=== PATIENT | male | born 1975 | race African-American/Black ===

== ENCOUNTER 2021-02-08 17:52 | Emergency (ER) | payer OTHER ==
[~2021-02-08] VITALS: Ht 182.9 cm; Wt 111.1 kg
[2021-02-08 18:56] LABS: ABSOLUTE NEUTROPHILS 2.4 thou/uL (1.4-8.2); BASOPHILS 0.7 % (0.0-2.0); EOSINOPHILS 4.9 % (0.0-3.0); HEMATOCRIT 43.8 % (42.0-52.0); HEMOGLOBIN 15.3 gm/dL (14.0-18.0); LYMPHOCYTES 23.9 % (24.0-44.0); MCH 31.9 pg (26.0-34.0); MCHC 34.9 g/dL (28.0-37.0); MCV 91.5 fL (80.0-100.0); MONOCYTES 13.3 % (1.0-8.0); PLATELET COUNT 218 thou/uL (150-400); POLYS 57.2 % (36.0-66.0); RBC 4.78 mil/uL (4.50-6.00); RDW 14.8 % (10.5-14.5); WBC 4.1 thou/uL (4.0-11.0)
[2021-02-08 18:57] LABS: URINE BILIRUBIN NEGATIVE (Negative); URINE BLOOD NEGATIVE (Negative); URINE CLARITY CLEAR; URINE COLOR YELLOW; URINE GLUCOSE-RANDOM* NEGATIVE (Negative); URINE KETONES NEGATIVE (Negative); URINE LEUKOCYTES-REFLEX NEGATIVE (Negative); URINE NITRITE-REFLEX NEGATIVE (Negative); URINE PROTEIN (DIPSTICK) NEGATIVE (Negative); URINE UROBILINOGEN 0.2 E.U./dl (0.2-1.0)
[2021-02-08 19:00] LABS: CREATININE 1.3 mg/dL (0.7-1.3); POTASSIUM 4.1 mmol/L (3.5-5.1)
[2021-02-08 19:06] LABS: ALBUMIN 3.2 g/dL (3.4-5.0); TOTAL BILIRUBIN 0.8 mg/dL (0.2-1.0); TOTAL PROTEIN 8.8 g/dL (6.4-8.2)
[2021-02-08] MEDS ORDERED: ASPIR-TRIN325 MG PO (19:25)
[2021-02-08] MEDS ORDERED: CARAFATE 1 GM TA1 G1 PO (20:22)
[2021-02-08] MEDS ORDERED: PROTONIX40 M2 PO (20:22)
[2021-02-08 21:00] VITALS: BP 153/110
--- NOTE | 2021-02-09 08:12 | EKG ---
[place] [address] [facility] [place] [address] ELECTROCARDIOGRAM REPORT Name: KYLENITESH Room #: DEP [facility]issa[facility] [id number] Admission: 02/08/21 Attend Phys: Discharge: 02/08/21 Date of : 79 Report #: [id number] [facility] ED Test Date: 2021-02-08 Test Time: 19:23:17 Pat Name: NITESH WRIGHT Department: Room: Gender: Program Services Planner: jevon : 1975 Requested By: Abe Berman Order Number: [id number] MD: Jp Wang Measurements Intervals [place] Rate: 97 P: 72 W[place]: 151 QRS: 32 QRSD: 93 T: 66 QT: 346 QTc: 440 Interpretive Statements Sinus rhythm Abnormal inferior Q waves Consider anterior infarct Baseline wander in lead(s) V5 No previous ECG available for comparison Electronically Signed On 02-09-2021 8:12:31 CDT by Jp Wang [email or web address] <ELECTRONICALLY SIGNED> By: Jp Wang MD 02/09/21811 22 22 Jp Wang MD /ADRIANA
== END 2021-02-08 21:15 | disposition home or self-care (01) ==
LOC: ER 17:52
PROVIDERS: Emergency Medicine
DX: K29.70 Gastritis, unspecified, without bleeding (principal); R59.9 Enlarged lymph nodes, unspecified; R10.12 Left upper quadrant pain; Z79.82 Long term (current) use of aspirin

== ENCOUNTER 2021-11-03 15:01 | Inpatient (IN) | payer OTHER ==
[~2021-11-03] VITALS: Ht 182.9 cm; Wt 110.2 kg
--- NOTE | ~2021-11-03 | O ---
[facility] [place] [address] OPERATIVE REPORT Name: NITESH WRIGHT Room #: 360-P ADM IN M.R.#: [id number] Admission: 11/03/21 Attend Phys: Wili Pinedo Mary Discharge: Date of : 79 Report #: [id number] THIS REPORT FOR: cc: FAM - No family physician/PCP FAM - No family physician/PCP Carmine Styles MD ~ DATE OF SERVICE: 11/04/2021 PREOPERATIVE DIAGNOSIS: Left groin abscess. POSTOPERATIVE DIAGNOSIS: Left groin abscess. OPERATION: Incision and drainage of left groin abscess. SURGEON: Carmine Styles. ANESTHESIA: General. ESTIMATED BLOOD LOSS: Minimal. SPECIMENS: Abscess fluid for culture and sensitivity. DESCRIPTION OF PROCEDURE: After informed consent was obtained, the patient was brought to the operating room and placed supine. SCDs were placed and working, general anesthesia was induced. The left groin was prepped and draped in the usual sterile fashion. A 1.5 cm incision was made over the area of fluctuance. Immediately pus was expressed. This was cultured and sent for specimen. The loculations were broken up with a clamp. Cavity measured approximately 2 x 2 cm. It was copiously irrigated with normal saline. It was packed with sterile gauze. Sterile dressings were applied. COMPLICATIONS: None. DISPOSITION: The patient was taken to recovery in satisfactory condition. By: [id number] Carmine Styles MD /you
[~2021-11-03 15:01] MED LIST: ASPIR-TRIN325 MG PO; CARAFATE 1 GM TA1 G1 PO; PROTONIX40 M2 PO
[2021-11-03 15:03] VITALS: BP 158/110
[2021-11-03] MEDS ORDERED: METFORMIN HCL500 M3 PO (15:07)
[2021-11-03 16:05] LABS: ABSOLUTE NEUTROPHILS 6.8 thou/uL (1.4-8.2); BASOPHILS 0.5 % (0.0-2.0); EOSINOPHILS 0.8 % (0.0-3.0); HEMATOCRIT 50.3 % (42.0-52.0); HEMOGLOBIN 17.3 gm/dL (14.0-18.0); LYMPHOCYTES 13.9 % (24.0-44.0); MCH 32.9 pg (26.0-34.0); MCHC 34.5 g/dL (28.0-37.0); MCV 95.5 fL (80.0-100.0); MONOCYTES 8.6 % (1.0-8.0); PLATELET COUNT 251 thou/uL (150-400); POLYS 76.2 % (36.0-66.0); RBC 5.26 mil/uL (4.50-6.00); WBC 8.9 thou/uL (4.0-11.0)
[2021-11-03 16:29] LABS: ALBUMIN 3.7 g/dL (3.4-5.0); CALCIUM 9.6 mg/dL (8.5-10.1); CREATININE 1.4 mg/dL (0.7-1.3); POTASSIUM 4.9 mmol/L (3.5-5.1); TOTAL PROTEIN 7.8 g/dL (6.4-8.2)
[2021-11-03 17:59] LABS: BE(vivo) -1.6 mmol/L (-2 to +3); HCO3 25.4 mmol/L (22.0-26.0); PCO2 VENOUS 51.1 mmHg (41.0-51.0); PO2 VENOUS 19.9 mmHg (35.0-45.0)
[2021-11-03 19:34] LABS: URINE BILIRUBIN NEGATIVE (Negative); URINE BLOOD NEGATIVE (Negative); URINE CLARITY CLEAR; URINE COLOR YELLOW; URINE GLUCOSE-RANDOM* 3+ (Negative); URINE KETONES 1+ (Negative); URINE LEUKOCYTES-REFLEX NEGATIVE (Negative); URINE NITRITE-REFLEX NEGATIVE (Negative); URINE PROTEIN (DIPSTICK) NEGATIVE (Negative); URINE SPECIFIC GRAVITY 1.015 (1.005-1.035); URINE UROBILINOGEN 0.2 E.U./dl (0.2-1.0)
[2021-11-03 22:32] VITALS: BP 158/110
[2021-11-03 23:04] VITALS: BP 125/76
[2021-11-03 23:08] VITALS: BP 138/101
--- NOTE | 2021-11-04 02:36 | NUR ---
ADMISSION: PT ARRIVED FROM ER AT APPROX 2300. PT ALERT & ORIENTED X 4, IS CALM & COOPERATIVE. PT HAS LEFT GROIN ABSCESS THAT HAS MINIMAL DRAINAGE. CULTURE TAKEN AND SENT TO LAB, AWAITING RESULTS. PICTURE OF ABSCESS TAKEN AND IN PT'S CHART. CANAL TENDER CONSULTED. PT IS UP AD CHAVEZ TO TOILET OR USES URINAL AT BEDSIDE. PT REPORTS NO DISCOMFORT WITH URINATION. VSS AFEBRILE. IVF ADMINISTERED. PT IS ABLE TO MAKE NEEDS KNOWN. CARE PLAN IN PLACE AND INTERVENTIONS SET.
[2021-11-04 03:38] VITALS: BP 128/81
[2021-11-04 04:56] LABS: HEMATOCRIT 42.2 % (42.0-52.0); MCH 32.9 pg (26.0-34.0); MCHC 34.5 g/dL (28.0-37.0); MCV 95.5 fL (80.0-100.0); RBC 4.42 mil/uL (4.50-6.00); WBC 7.3 thou/uL (4.0-11.0)
[2021-11-04 05:15] LABS: HEMOGLOBIN 14.6 gm/dL (14.0-18.0)
[2021-11-04 05:29] LABS: ALBUMIN 2.9 g/dL (3.4-5.0); CALCIUM 8.1 mg/dL (8.5-10.1); CREATININE 1.1 mg/dL (0.7-1.3); PHOSPHORUS 3.3 mg/dL (2.5-4.9); POTASSIUM 4.3 mmol/L (3.5-5.1)
[2021-11-04 07:00] VITALS: BP 124/76
[2021-11-04 15:46] VITALS: BP 119/93
--- NOTE | 2021-11-04 18:30 | NUR ---
ASSUMED PATIENT CARE AT 0700. A/O X4. HAD LEFT GROIN I&D. UP AD CHAVEZ. SLOWLY TOWARDS POC GOALS.
[2021-11-04 19:29] VITALS: BP 151/83
[2021-11-05 04:57] VITALS: BP 126/87
[2021-11-05 07:07] LABS: ESTIMATED AVERAGE GLUCOSE > 398 mg/dL (()); GLYCOHEMOGLOBIN (HGB A1C) > 15.5 % (4.8-5.6)
--- NOTE | 2021-11-05 07:31 | NUR ---
PT A&OX4, PLEASANT AND COOPERATIVE. PT IS UP AD CHAVEZ TO BR. L GROIN I&D SITE DRESSING LOOSE, REINFORCED X2 OCCURANCES THIS SHIFT. CONTINUES ON IV VANCOMYCIN AND MAINTENANCE FLUIDS, VANC TROUGH DUE AT 1730 TODAY. VSS THROUGHOUT THE SHIFT.
[2021-11-05 07:33] VITALS: BP 124/89
--- NOTE | 2021-11-05 09:39 | NUR ---
Assumed care of pt this AM. Pt is A&O x4, on RA, SR on the monitor. Pt denies any current pain. Pt w/ surgical wound to lt groin with saturated dressing. Called Dr. Styles & received wound care orders. Per physican, remove original surgical packing & lightly pack w/ 4x4, change dressing as needed & daily. Pt wanting to discharge today, however most likely will not be able too. Pt explained why. Pt states he just not use to being cooped up. Pt w/ no other complaints at this time. Up ad anjelica in the room. Frequent rounding in place.
== END 2021-11-05 14:19 | disposition left against medical advice (07) | DRG 580 ==
LOC: ER 15:01 → EROBS 17:56 → 3W 22:55
PROVIDERS: Physician Assistant; ADMIT Hospitalist; ATTEND Hospitalist
PROC: 0Y960ZZ Drainage of Left Inguinal Region, Open Approach (ICD-10-PCS; principal; 2021-11-04)
DX: L02.214 Cutaneous abscess of groin (principal); R65.10 Systemic inflammatory response syndrome (SIRS) of non-infectious origin without acute organ dysfunction; E11.9 Type 2 diabetes mellitus without complications; Z20.822 Contact with and (suspected) exposure to COVID-19; Z53.29 Procedure and treatment not carried out because of patient's decision for other reasons; I10 Essential (primary) hypertension; Z88.6 Allergy status to analgesic agent; Z91.040 Latex allergy status; Z79.82 Long term (current) use of aspirin; Z79.899 Other long term (current) drug therapy; Z83.3 Family history of diabetes mellitus
CPT/HCPCS: 10879; 50010; 50386; 50417